=== PATIENT | female | born 1985 | race Caucasian/White ===

== ENCOUNTER 2019-03-25 04:00 | Inpatient (IN) | payer BC, SELFPAY ==
[2019-03-25 04:30] VITALS: BMI 32.8
[2019-03-25] MEDS: Lactated Ringers 500 ML 999 ML IV ×2 (04:30→05:46)
[2019-03-25 04:46] LABS: Absolute Lymphocyte Count 1.41 X10^3/uL (0.83-4.51); Absolute Neutrophil Count 9.6 X10^3/uL (2.0-7.7); Basophil# 0.05 X10^3/uL; Basophil% 0.4 % (0-1); Eosinophil# 0.09 X10^3/uL; Eosinophils% 0.8 % (0-5); Hematocrit 37.8 % (37-47); Hemoglobin 12.4 g/dL (12.0-15.0); Lymphocyte # 1.41 X10^3/ul (4.0); Lymphocyte % 11.9 % (19-41); Mean Corp Hgb Conc 32.8 g/dL (32-36); Mean Corpuscular Hgb 29.4 pg (27.0-32.0); Mean Corpuscular Volume 89.6 fL (81-99); Mean Platelet Vol. 10.3 fl (6.2-12.0); Monocyte# 0.63 X10^3/uL; Monocyte% 5.3 % (0-10); NRBC Flagged by Analyzer 0 % (0-5); Neutrophil # 9.61 X10^3/uL (2.7-7.7); Platelet Count 267 K/mm3 (150-450); RBC Distribution Width CV 13.5 % (11.6-14.6); Red Blood Count 4.22 M/mm3 (4.2-5.4); White Blood Count 11.9 K/mm3 (4.4-11.0)
[2019-03-25] MEDS: Lactated Ringers 1,000 ML 50 ML IV (05:01)
[2019-03-25] MEDS: fentaNYL-bupivacaine (epidural) 100 ML BAG EPIDURAL (05:30)
[2019-03-25] MEDS: Ondansetron 4 MG/2 ML Vial IV (05:59)
[2019-03-25] MEDS: Oxytocin 30 units/NS 500 ml 30 UNITS/500 ML IV.SOLN 334 UNITS IV (07:41)
--- NOTE | 2019-03-25 08:00 | PCM.OPRPT ---
Vaginal Delivery Maternal Presentation: Active Labor Amniotic Membrane Rupture Type: Spontaneous at home Amniotic Fluid Description: Clear Final JAGDISH: 03/28/19 Final JAGDISH Source: US <20 weeks Gestational age: 39 Weeks and 4 Days Date of Procedure: 03/25/19 Pre-Operative Diagnosis: labor Post-Operative Diagnosis: same Surgery/ Procedure Performed: Spontaneous Vaginal Delivery Type of Anesthesia: Epidural Description of Procedure: I arrived and the patient was pushing. She pushed with several contractions with small amount descent. When I examined the patient she was found to be TERRELL P. With the next contraction I rotated the head to TERRELL. Significant descent of the head with the next contraction. A vigorous female was delivered TERRELL over a second-degree perineal laceration. A loose nuchal cord ?1 was easily reduced. The remainder the infant was delivered with maternal pushing and gentle traction only in less than 15 seconds. The Pitocin infusion was initiated for active management of the third stage. The cord was clamped and cut after 1 minute. The infant was attended to by the waiting nursing staff. The placenta was delivered spontaneously and intact. The cervix and vagina were intact. The second-degree perineal laceration was repaired with 3-0 Vicryl suture in a running standard fashion. Sponge and needle counts were correct. A vaginal sweep was completed by me. Presentation: TERRELL Placental Delivery Description: Spontaneous Placenta Disposition: [facility] Cord Vessel Description: 3 Vessels Nuchal Cord Compression: Without compression Cord Entanglement: Around neck x 1, loose Drain: Jasso to straight drain Estimated Blood Loss: 200 A gender: Female (1 minute): 8 (5 minute): 9 Episiotomy Description: None Laceration: 2nd degree - perineal Medications given after delivery: IV Pitocin Complications: None
--- NOTE | 2019-03-25 08:05 | PCM.HP.OB ---
History Date of Admission: 03/25/19 Final JAGDISH: 03/28/19 Final JAGDISH Source: US <20 weeks Gestational age: 39 Weeks and 4 Days History of this : This is a 33 year-old, 3 para 2 presents at 39-4/7 weeks gestation with a EDC of 03/28/2019 with complaint of spontaneous rupture membranes. When she arrived she was found to be ruptured and having some contractions and active and active labor. She denied any gross vaginal bleeding. She is had good movement. He has a history of 2 previous vaginal deliveries, 6 pounds 12 ounces and 6 pounds 14 ounces. Allergies No Known Allergies Allergy (Verified 03/25/19 04:48) Home Medications: Home Medications Pnv No.95/Ferrous Fum/Folic AC [ Formula Tablet] 1 tab PO DAILY 03/25/19 Smoking Status: Former smoker Alcohol: None Number of Fetus(es): 1 History Past Pregnancies: Past Pregnancies Delivery Date Name GA/ Weeks Outcome Route Wt Sex Labor Length Anesthesia Delivery Location Provider FOB Expected Infant Delivery Method: Spontaneous Vaginal Review of Systems Constitutional: Denies: Chills, Fever Eyes: Denies: Blurred vision Cardiovascular: Denies: Chest Pain Respiratory: Denies: Cough Gastrointestinal: Denies: Constipation, Diarrhea Skin: Denies: Rash Neurological: Denies: Change in Speech, Slurred speech, Confusion Physical Exam General: Alert, Cooperative, No apparent distress Cardiovascular: Regular rate Lungs: Normal air movement Abdomen: Soft, Non Tender, Non-Distended, Gravid, Appropriate for Gestational Age Extremities:: Other - Trace edema Neurological: Cranial nerves II-XII grossly intact SAFETY RISK LEAD: Normal external genitalia Estimated gestational size: Appropriate for gestational size Presentation: Cephalic Assessment/Plan This is a 33 year-old, avid a 3 para 2 at 39-4/7 weeks gestation with spontaneous labor. Estimated weight was less than 4500 g clinically and pelvis clinically adequate to expect vaginal delivery. May have epidural as desired.
[2019-03-25] MEDS: 0.9% Saline Lock 10 ML Syringe IV (10:33)
--- NOTE | 2019-03-25 10:33 | NURSING ---
Per pt record, HIV status is non-reactive. Was charted as non-reactive on admission but flows through as reactive to clinical panel.
[2019-03-25 11:25] VITALS: BP 117/62; PULSE 88; RESP 16; TEMP 37.1; O2SAT 95
[2019-03-25] MEDS: Naproxen 250 MG Tablet 500 MG PO (14:11)
[2019-03-25 16:00] VITALS: BP 117/65; PULSE 81; RESP 16; TEMP 36.6
[2019-03-25 20:00] VITALS: BP 114/60; PULSE 84; RESP 16; TEMP 36.3
[2019-03-26] VITALS: BP 109/75; PULSE 82; RESP 16; TEMP 36.8
[2019-03-26] MEDS: Naproxen 250 MG Tablet 500 MG PO (02:25)
[2019-03-26 04:00] VITALS: BP 105/68; PULSE 89; RESP 16; TEMP 36.6
[2019-03-26 08:00] VITALS: BP 110/65; PULSE 76; RESP 14; TEMP 36.7
--- NOTE | 2019-03-26 09:54 | DCINST_ITS ---
Discharge Diet: No Restrictions Discharge Activity: Return to Normal Activity, May not drive while taking narcotic pain medications., May Shower May resume sexual activity in: 4-6 weeks Additional Activity Instructions:: Nothing in the vagina for 4-6 weeks. You may return to work/school in 6 weeks. Call your doctor if your incision/area has: Continuous Slow Oozing, Sudden Increased Bleeding, Increased Pain/ Swelling, Increased Redness, Foul Smelling Discharge Additional Instructions: If you experience any of the following, contact your healthcare provider. * Bleeding that soaks a pad every hour for 2 hours * Fever 100.4 or higher * Unrelieved incision or abdominal pain * Swelling, redness, discharge or bleeding from your incision or episiotomy site * Your incision begins to separate * Problems urinating (including inability to urinate or burning while urinating). * Visual changes * Severe headache * Flu-like symptoms * Pain or redness in one of both of your breasts * Pain, warmth, tenderness or swelling in your legs, especially the calf area * Frequent nausea and vomiting * Symptoms of depression or anxiety If you experience any of the following, call 911 or go to the nearest Emergency Room. * Chest pain * Problems breathing * Seizure activity * Partial or complete paralysis of a body part, slurred speech, weakness or drooping of the face, or a sudden inability to walk or hold your balance Allergies/Adverse Reactions: Allergies No Known Allergies Allergy (Verified 03/25/19 04:48) Medications to take at Discharge Pnv No.95/Ferrous Fum/Folic AC [ Formula Tablet] 1 tab PO DAILY 03/25/19 Please Follow Up With: Leigh Reina MD - [phone] When: Call to make an appointment with your doctor in 6 weeks. If you had elevated Blood Pressure or 4th degree laceration you will need to be seen in 2 weeks. Primary Care Physician: Care Physician,No Primary [Primary Care Provider] - Test Results: Test results from this visit will be discussed in further detail at your follow- up appointment, if applicable.
--- NOTE | 2019-03-26 09:54 | PCM.DCVAG ---
Discharge Diet: No Restrictions Discharge Activity: Return to Normal Activity, May not drive while taking narcotic pain medications., May Shower May resume sexual activity in: 4-6 weeks Additional Activity Instructions:: Nothing in the vagina for 4-6 weeks. You may return to work/school in 6 weeks. Call your doctor if your incision/area has: Continuous Slow Oozing, Sudden Increased Bleeding, Increased Pain/ Swelling, Increased Redness, Foul Smelling Discharge Additional Instructions: If you experience any of the following, contact your healthcare provider. Bleeding that soaks a pad every hour for 2 hours Fever 100.4 or higher Unrelieved incision or abdominal pain Swelling, redness, discharge or bleeding from your incision or episiotomy site Your incision begins to separate Problems urinating (including inability to urinate or burning while urinating). Visual changes Severe headache Flu-like symptoms Pain or redness in one of both of your breasts Pain, warmth, tenderness or swelling in your legs, especially the calf area Frequent nausea and vomiting Symptoms of depression or anxiety If you experience any of the following, call 911 or go to the nearest Emergency Room. Chest pain Problems breathing Seizure activity Partial or complete paralysis of a body part, slurred speech, weakness or drooping of the face, or a sudden inability to walk or hold your balance Allergies/Adverse Reactions: Allergies No Known Allergies Allergy (Verified 03/25/19 04:48) Medications to take at Discharge Pnv No.95/Ferrous Fum/Folic AC [ Formula Tablet] 1 tab PO DAILY 03/25/19 Please Follow Up With: Leigh Reina MD - [phone] When: Call to make an appointment with your doctor in 6 weeks. If you had elevated Blood Pressure or 4th degree laceration you will need to be seen in 2 weeks. Primary Care Physician: Care Physician,No Primary [Primary Care Provider] - Test Results: Test results from this visit will be discussed in further detail at your follow-up appointment, if applicable.
--- NOTE | 2019-03-26 09:54 | PCM.PN.OB ---
Subjective: pain well controlled, average lochia - Physical Exam Vitals/I&O's: Vital Signs Temp Pulse Resp BP Pulse Ox 97.9 F 89 16 105/68 95 03/26/19 04:00 03/26/19 04:00 03/26/19 04:00 03/26/19 04:00 03/25/19 11:25 Oxygen Delivery Method Room Air Weight: 86.6 kg Body Mass Index (BMI) 32.8 Intake and Output for Last 24 Hours 03/24/19 03/25/19 03/26/19 23:59 23:59 23:59 Intake Total 2044.50 / 2044.50 Output Total 625 / 625 Balance 1419.50 / 1419.50 General: Alert, Cooperative, No apparent distress Current Medications Acetaminophen (Tylenol) 1,000 mg PO Q8H PRN PRN PRN Reason: Pain Score 1-3/10 Bisacodyl (Dulcolax) 10 mg RECTAL UD PRN PRN Reason: If no BM Dibucaine (Dibucaine) 1 applic TOPICAL TID PRN PRN; Protocol PRN Reason: Discomfort Hydrocortisone (Hytone) 1 applic TOPICAL TID PRN PRN; Protocol PRN Reason: Discomfort Methylergonovine Maleate (Methergine) 0.2 mg IM X1 PRN PRN Reason: Excess bleeding/uterine atony Naproxen (Naprosyn) 500 mg PO Q8H PRN PRN PRN Reason: Pain Score 1-3/10 Last Admin: 03/26/19 02:25 Dose: 500 mg Documented by: Ondansetron HCl (Zofran) 4 mg IV Q4H PRN PRN PRN Reason: Nausea Oxycodone HCl (Oxyir) 5 mg PO Q4H PRN PRN PRN Reason: breakthrough pain Prochlorperazine Edisylate (Compazine Iv) 10 mg IV Q6H PRN PRN PRN Reason: NAUSEA/VOMITING Senna/Docusate Sodium (Senokot-S, Shiloh-Colace) 1 - 2 tablet PO DAILY PRN PRN PRN Reason: Constipation Simethicone (Mylicon) 80 mg PO PCHS PRN PRN Reason: Indigestion/Stomach pain Sodium Chloride () 5 - 15 ml IV UD PRN PRN Reason: SALINE FLUSH Last Admin: 03/25/19 10:33 Dose: 10 ml Documented by: Medical Necessity - Tobacco Use Smoking Status: Former smoker Assessment/Plan PPD#1 s/p doing well ready for d/c if ok w/ peds
[2019-03-26 11:43] VITALS: BP 112/71; PULSE 80; RESP 16; TEMP 36.4
[2019-03-26] MEDS: Senna/Docusate Sodium 1 Tablet PO (12:05)
== END 2019-03-26 12:25 | disposition home or self-care (01) | DRG 807 ==
PROVIDERS: Admitting Provider Obstetrics & Gynecology; Referring Provider Obstetrics & Gynecology; Visit Provider Obstetrics & Gynecology
DX: O69.1XX0 Labor and delivery complicated by cord around neck, with compression, not applicable or unspecified (principal); O70.1 Second degree perineal laceration during delivery; Z87.891 Personal history of nicotine dependence; Z3A.39 39 weeks gestation of pregnancy; Z37.0 Single live birth
CPT/HCPCS: 59025; 59050; 85025; 86850; 86900; 86901; 99218; J7120; A4216; G0378; J2405